=== PATIENT | female | born 1975 | race Hispanic/Latino ===

== ENCOUNTER 2019-02-23 14:26 | Emergency (ER) | payer BC ==
[2019-02-23] MEDS ORDERED: methylPREDNISolone SODIUM SUC 125 MG/2 ML VIAL IV ONE (14:29)
[2019-02-23] MEDS ORDERED: MONTELUKAST 10 MG TAB PO ONE (14:29)
[2019-02-23] MEDS ORDERED: IPRATROPIUM/ALBUTEROL 3 ML VIAL NEB ONE (14:31)
[2019-02-23 16:41] VITALS: O2SAT 100
[2019-02-23] MEDS ORDERED: predniSONE 20 MG TAB PO ONE (16:44)
--- NOTE | 2019-02-23 16:46 | ED.PDOC ---
History of Present Illness - General Chief Complaint: Allergic Reaction Stated Complaint: Pt had an allergic reaction to coconut Time Seen by Provider: 02/23/19 14:29 Source: patient Exam Limitations: no limitations - History of Present Illness Initial Comments: the patient is a 43-year-old female presenting to the emergency room secondary to having had a allergic reaction to a drink with coconut. She does have a history of having near anaphylaxis with coconut ingestion in the past. She reports getting hives with Benadryl. The patient was initially seen and treated with EMS and did receive an EpiPen dose. She also received a dose of Claritin and Zantac prior to arrival. The patient is quite agitated and irritated. She is not confused. She has mad at EMS because she states that they treated her roughly. the patient reports that she was getting short of breath and was having some swelling in her upper airway. She did report having some increased cough and some hoarseness. No vomiting. No syncope or near syncope. She did have some diaphoresis. She is not diaphoretic now. She is breathing fairly easily now. She still does have a significant cough however. For mild scattered wheezes at this point. The patient appeared to have been going into anaphylaxis until EMS intervened. the patient does act agitated and little bit intoxicated. Do suspect methamphetamine abuse. Timing/Duration: 1/2 hour Severity: severe Improving Factors: medication Worsening Factors: nothing Associated Symptoms: cough, diaphoresis, loss of appetite, shortness of breath Allergies/Adverse Reactions: Allergies Coconut Flavor Adverse Reaction (Verified 02/23/19 14:31) Diphenhydramine [From Benadryl] Adverse Reaction (Verified 02/23/19 14:31) Review of Systems - Review of Systems Constitutional: States: no symptoms reported EENTM: States: nose congestion, throat pain Respiratory: States: cough, short of breath, wheezing Cardiology: States: palpitations Gastrointestinal/Abdominal: States: no symptoms reported Genitourinary: States: no symptoms reported Musculoskeletal: States: no symptoms reported Skin: States: no symptoms reported Neurological: States: anxiety Endocrine: States: no symptoms reported All other Systems: No Change from Baseline Past Medical History (General) - Patient Medical History Hx Stroke: No Hx of COPD: No Hx Congestive Heart Failure: No Hx Hypertension: No Hx Thyroid Disease: Yes - Hypothyroidism Hx Diabetes: No Surgical History: Hysterectomy - Vaccination History Hx Tetanus, Diphtheria Vaccination: No Hx Influenza Vaccination: No Hx Pneumococcal Vaccination: No - Social History Hx Tobacco Use: Yes Cigarettes Packs Per Day: 2 Hx Alcohol Use: Yes Hx Substance Use: No Hx Substance Use Treatment: No Hx Depression: No - Female History Patient is a Female of Child Bearing Age (10 -59 yrs old): Yes Patient : No - Hysterectomy Family Medical History - Family History Mother Family History: Unknown Living Status: Unknown Physical Exam - Physical Exam General Appearance: Alert, Anxious Eye Exam: bilateral normal Ears, Nose, Throat: hearing grossly normal, nasal congestion, other - mildly hoarse voice. Bloodshot eyes. Neck: full range of motion, supple Respiratory: respiratory distress - mild and significantly improved from when EMS picked her up, accessory muscle use - mild, rhonchi, wheezing Cardiovascular/Chest: normal peripheral pulses, regular rate, rhythm, no edema Peripheral Pulses: radial,right: 2+, radial,left: 2+, dorsalis pedis,right: 2+, dorsalis pedis,left: 2+ Gastrointestinal/Abdominal: non tender, soft Rectal Exam: deferred Back Exam: no CVA tenderness, no vertebral tenderness Extremity: normal range of motion, non-tender, normal inspection, no pedal edema, normal capillary refill Neurologic: pit recorder II-XII nml as tested, alert, normal mood/affect - anxious and agitated consistent withmethamphetamine abuse, oriented x 3 Skin Exam: normal color Comments: Vital Signs - 24 hr 02/23/19 02/23/19 02/23/19 14:42 14:43 14:50 Temperature 98 F Pulse Rate 83 Pulse Rate [R 85 finger] Respiratory 20 20 18 Rate Blood Pressure 132/102 [L arm] O2 Sat by Pulse 100 99 Oximetry 02/23/19 02/23/19 15:27 16:40 Temperature Pulse Rate Pulse Rate [R 73 81 finger] Respiratory 17 20 Rate Blood Pressure 114/73 124/81 [L arm] O2 Sat by Pulse 99 100 Oximetry Progress - Progress Progress: 02/23/19 16:48 the patient's 43-year-old female presenting to the emergency room with what appears to be resolving anaphylaxis from ingestion of a drink containing coconut. She did receive epinephrine, Claritin and Pepcid as an outpatient. She received a dose of steroids, breathing treatment and a dose of Singulair here. Her respiratory status has continued to improve. She is still somewhat agitated. The patient has tested positive for methamphetamine which does go along with her behavior. She obviously needs to avoid this in the future. She will be written for an EpiPen for any future anaphylactic episodes. Lungs are clearing. The patient will be discharged home. She needs to follow back up with her primary care doctor later this week. She will be placed on prednisone for the next 3 days as well. - Results/Orders Results/Orders: Vital Signs - 24 hr 02/23/19 02/23/19 02/23/19 14:42 14:43 14:50 Temperature 98 F Pulse Rate 83 Pulse Rate [R 85 finger] Respiratory 20 20 18 Rate Blood Pressure 132/102 [L arm] O2 Sat by Pulse 100 99 Oximetry 02/23/19 02/23/19 15:27 16:40 Temperature Pulse Rate Pulse Rate [R 73 81 finger] Respiratory 17 20 Rate Blood Pressure 114/73 124/81 [L arm] O2 Sat by Pulse 99 100 Oximetry Departure - Departure Clinical Impression: Substance abuse Anaphylaxis Qualifiers: Encounter type: initial encounter Qualified Code(s): T78.2XXA - Anaphylactic shock, unspecified, initial encounter Disposition: Discharge to Home or Self Care Condition: Fair Departure Forms: ED Discharge - Pt. Copy, Patient Portal Self Enrollment Instructions: Anaphylaxis Diet: regular diet Activity: increase activity as tolerated Additional Instructions: The patient is a 43-year-old female presenting with anaphylaxis from ingestion of Coconut. The patient is doing much better at this point. She is going to be placed on prednisone 40 mg daily for the next 3 days. She will be written for 2 epi-pens as well for as needed use. She needs follow-up with her primary care doctor in the near future. Avoid any substance abuse as this will complicate her medical conditions.
[2019-02-23 17:12] VITALS: BP 130/84; TEMP 98.2
== END 2019-02-23 17:12 | disposition home or self-care (01) ==
LOC: ER 14:26
DX: T78.09XA Anaphylactic reaction due to other food products, initial encounter (principal); F15.10 Other stimulant abuse, uncomplicated; E03.9 Hypothyroidism, unspecified; Z91.018 Allergy to other foods; Z88.8 Allergy status to other drugs, medicaments and biological substances; Z87.891 Personal history of nicotine dependence
CPT/HCPCS: 80307; 81001; 94640; J2930; J7512; J7620